=== PATIENT | male | born 1970 | race Two or more races ===

== ENCOUNTER 2017-04-20 06:12 | Emergency (ER) | payer SELFPAY ==
[~2017-04-20] VITALS: Ht 170.2 cm; Wt 99.8 kg
--- NOTE | 2017-04-20 07:05 | NUR ---
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 PATIENT WOKEN UP FROM PAIN. A/OX 4. BREATHING EVEN AND UNLABORED. NO SOB. VITALS STABLE. SAFETY AND COMFORT MEASURES IN PLACE. AWAITING MD ORDERS.
[2017-04-20] MEDS ORDERED: ONDANSETRON HCL/PF 4 MG/2 ML VIAL ONE (07:22)
[2017-04-20] MEDS ORDERED: IV NS 0.9% 1,000 ML BAG IV ONE (07:30)
[2017-04-20] MEDS ORDERED: HYDROMORPHONE INJ 2 MG/ML DISP.SYRIN IV ONE (07:30)
[2017-04-20] MEDS ORDERED: ONDANSETRON HCL/PF 4 MG/2 ML VIAL IVP ONE (07:30)
--- NOTE | 2017-04-20 07:30 | NUR ---
NEW IV STARTED ON LAC, 20 G. BLOOD DRAWN AND SENT TO LAB.
[2017-04-20 07:50] LABS: BASOPHILS % (AUTO) 0.2 % (0.0-2.0); EOSINOPHILS # (AUTO) 0.1 /CMM (0.0-0.7); EOSINOPHILS % (AUTO) 1.6 % (0.0-6.0); HEMATOCRIT 41 % (39-51); HEMOGLOBIN 13.7 g/dL (13.5-17.5); LYMPHOCYTES # (AUTO) 1.1 /CMM (0.8-4.8); LYMPHOCYTES % (AUTO) 13.2 % (20.0-44.0); MEAN CORPUSCULAR HEMOGLOBIN 30 PG (26.0-33.0); MEAN CORPUSCULAR HGB CONC 34 g/dl (31.0-36.0); MEAN CORPUSCULAR VOLUME 89 fL (80-96); MONOCYTES # (AUTO) 0.4 /CMM (0.1-1.30); MONOCYTES % (AUTO) 4.5 % (2.0-12.0); NEUTROPHILS # (AUTO) 6.4 /CMM (1.8-8.9); NEUTROPHILS % (AUTO) 80.5 % (43.0-81.0); PLATELET COUNT (AUTO) 146 /CMM (150-450); RDW COEFFICIENT OF VARIATION 12.9 (11.5-15.0); RED BLOOD CELL COUNT(AUTO) 4.58 MIL/uL (4.5-6.0)
--- NOTE | 2017-04-20 07:57 | NUR ---
PATIENT TAKEN TO CT VIA WHEELCHAIR.
[2017-04-20 08:04] LABS: CALCIUM, SERUM 8.8 mg/dL (8.5-10.1); CREATININE 0.9 mg/dL (0.6-1.3); POTASSIUM 4.3 mmol/L (3.5-5.1)
[2017-04-20 08:09] LABS: ALBUMIN 3.9 g/dL (3.4-5.0); BILIRUBIN,DIRECT 0.1 mg/dL (0.0-0.2); BILIRUBIN,TOTAL 0.7 mg/dL (0.2-1.0); TOTAL PROTEIN, SERUM 7.2 g/dL (6.4-8.2)
--- NOTE | 2017-04-20 08:10 | NUR ---
PATIENT RETURNED FROM CT IN STABLE CONDITION.
[2017-04-20 08:36] LABS: APPEARANCE,URINE CLEAR (CLEAR); BILIRUBIN,URINE NEGATIVE (NEGATIVE); BLOOD, URINE 1+ Ery/uL (NEGATIVE); COLOR,URINE YELLOW (YELLOW); KETONES,URINE NEGATIVE (NEGATIVE); LEUKOCYTE ESTERASE ,URINE NEGATIVE (NEGATIVE); NITRITE, URINE NEGATIVE (NEGATIVE); PH,URINE 5.5 (5.0-8.0); PROTEIN,URINE NEGATIVE (NEGATIVE); UGLUCOSE NEGATIVE (NEGATIVE); UROBILINOGEN,URINE 0.2 EU/dL (0.2)
--- NOTE | 2017-04-20 08:55 | NUR ---
PATIENT STATING TO HOLD OFF ON DILAUDID AT THIS TIME. HIS ABD PAIN HAS GONE AWAY WITH FLUIDS AND ZOFRAN FOR NOW, WILL CONTINUE TO MONITOR.
--- NOTE | 2017-04-20 09:10 | NUR ---
us tech at bedside.
[2017-04-20 09:27] LABS: BACTERIA,URINE Few /HPF (None Seen); SQUAMOUS EPITHELIAL CELL,UR Rare /HPF (None Seen); WBC,URINE 0-2 /HPF (0-3)
[2017-04-20 10:26] VITALS: BP 148/76
--- NOTE | 2017-04-20 10:27 | NUR ---
IV removed. Catheter intact and site benign. Pressure and 4x4 applied to site. No bleeding noted. Patient discharged to home in stable condition. Written and verbal after care instructions given. Patient verbalizes understanding of instruction.
== END 2017-04-20 10:27 | disposition home or self-care (01) ==
LOC: ER 06:14
DX: K80.20 Calculus of gallbladder without cholecystitis without obstruction (principal); K80.50 Calculus of bile duct without cholangitis or cholecystitis without obstruction; R11.2 Nausea with vomiting, unspecified
CPT/HCPCS: 36415; 74176; 76705; 80048; 80076; 81001; 83690; 85025; 96361; 96374; 99285; A4606; J2405; J7030; Z7610; 81000-TC

== ENCOUNTER 2019-05-19 11:58 | Emergency (ER) | payer BC ==
[~2019-05-19] VITALS: Ht 172.7 cm; Wt 68.0 kg
--- NOTE | 2019-05-19 12:10 | NUR ---
R U Q ABD PAIN SINCE THIS MORNING. PATIENT A/OX4, BREATHING EVEN AND UNLABORED, NO SOB NOTED, NEEDS ATTENDED, CHANGED INTO GOWN. KEPT COMFORTABLE.
[2019-05-19 12:38] LABS: BASOPHILS % (AUTO) 0.1 % (0.0-2.0); EOSINOPHILS % (AUTO) 0.1 % (0.0-6.0); HEMATOCRIT 39 % (39-51); HEMOGLOBIN 13.2 g/dL (13.5-17.5); LYMPHOCYTES # (AUTO) 0.5 /CMM (0.8-4.8); LYMPHOCYTES % (AUTO) 5.7 % (20.0-44.0); MEAN CORPUSCULAR HGB CONC 34 g/dl (31.0-36.0); MEAN CORPUSCULAR VOLUME 91 fL (80-96); MONOCYTES # (AUTO) 0.3 /CMM (0.1-1.30); NEUTROPHILS # (AUTO) 8.2 /CMM (1.8-8.9); NEUTROPHILS % (AUTO) 91.1 % (43.0-81.0); PLATELET COUNT (AUTO) 150 /CMM (150-450); RED BLOOD CELL COUNT(AUTO) 4.33 MIL/uL (4.5-6.0)
[2019-05-19 13:16] LABS: ALANINE AMINOTRANSFERASE 27 U/L (12-78); ALBUMIN 4.1 g/dL (3.4-5.0); ALKALINE PHOSPHATASE 30 U/L (46-116); ASPARTATE AMINOTRANSFERASE 15 U/L (15-37); BILIRUBIN,DIRECT 0.1 mg/dL (0.0-0.2); BILIRUBIN,TOTAL 0.9 mg/dL (0.2-1.0); CALCIUM, SERUM 9.2 mg/dL (8.5-10.1); CARBON DIOXIDE 29 mmol/L (21-32); CHLORIDE 102 mmol/L (98-107); CREATININE 0.8 mg/dL (0.6-1.3); GLUCOSE 153 mg/dL (74-106); LIPASE 165 U/L (73-393); POTASSIUM 4.2 mmol/L (3.5-5.1); SODIUM SERUM 141 mmol/L (136-145); TOTAL PROTEIN, SERUM 7.5 g/dL (6.4-8.2); UREA NITROGEN, BLOOD 19 mg/dL (7-18)
--- NOTE | 2019-05-19 13:38 | NUR ---
Patient denies pain at this time. Patient discharged to home in stable condition. Written and verbal after care instructions given. Patient verbalizes understanding of instruction.
[2019-05-19 13:39] VITALS: BP 145/74
== END 2019-05-19 13:39 | disposition home or self-care (01) ==
LOC: ER 12:06
DX: K80.50 Calculus of bile duct without cholangitis or cholecystitis without obstruction (principal)
CPT/HCPCS: 36415; 76705-TC; 80048-TC; 80076-TC; 83690-TC; 84484-TC; 85025-TC

== ENCOUNTER 2019-09-14 14:02 | Inpatient (IN) | payer BC, OTHER ==
[~2019-09-14] VITALS: Ht 170.2 cm; Wt 82.6 kg
--- NOTE | 2019-09-14 14:13 | NUR ---
RUQ abdominal pain with nausea and vomting x 3 days, Sent by Dr Gonsales for further evaluation. to ER 3, hooked to monitor, changed to hosp gown, warm blanket provided, awaiting md ugarte
--- NOTE | 2019-09-14 14:28 | NUR ---
dr grijalva at bedside
--- NOTE | 2019-09-14 14:37 | NUR ---
DR MONIQUE SPEAKING WITH DR FORD
[2019-09-14] MEDS ORDERED: MORPHINE SULFATE INJ 4 MG/ML DISP.SYRIN ONE (14:55)
[2019-09-14] MEDS ORDERED: MORPHINE SULFATE INJ 2 MG/ML DISP.SYRIN IV ONE (15:00)
[2019-09-14 15:07] LABS: CALCIUM, SERUM 8.9 mg/dL (8.5-10.1); CARBON DIOXIDE 32 mmol/L (21-32); CHLORIDE 101 mmol/L (98-107); CREATININE 0.9 mg/dL (0.6-1.3); GLUCOSE 92 mg/dL (74-106); POTASSIUM 3.9 mmol/L (3.5-5.1); SODIUM SERUM 138 mmol/L (136-145); UREA NITROGEN, BLOOD 8 mg/dL (7-18)
[2019-09-14 15:13] LABS: ALANINE AMINOTRANSFERASE 779 U/L (12-78); ALBUMIN 3.8 g/dL (3.4-5.0); ALKALINE PHOSPHATASE 371 U/L (46-116); ASPARTATE AMINOTRANSFERASE 352 U/L (15-37); BASOPHILS % (AUTO) 0.5 % (0.0-2.0); BILIRUBIN,DIRECT 4.4 mg/dL (0.0-0.2); BILIRUBIN,TOTAL 6.9 mg/dL (0.2-1.0); EOSINOPHILS % (AUTO) 2.5 % (0.0-6.0); HEMATOCRIT 41 % (39-51); HEMOGLOBIN 13.9 g/dL (13.5-17.5); LIPASE 49 U/L (73-393); LYMPHOCYTES # (AUTO) 0.8 /CMM (0.8-4.8); LYMPHOCYTES % (AUTO) 15.8 % (20.0-44.0); MEAN CORPUSCULAR HGB CONC 34 g/dl (31.0-36.0); MEAN CORPUSCULAR VOLUME 89 fL (80-96); MONOCYTES # (AUTO) 0.4 /CMM (0.1-1.30); MONOCYTES % (AUTO) 7.9 % (2.0-12.0); NEUTROPHILS # (AUTO) 3.5 /CMM (1.8-8.9); NEUTROPHILS % (AUTO) 73.3 % (43.0-81.0); PLATELET COUNT (AUTO) 143 /CMM (150-450); RED BLOOD CELL COUNT(AUTO) 4.66 MIL/uL (4.5-6.0); TOTAL PROTEIN, SERUM 7.4 g/dL (6.4-8.2); WHITE BLOOD COUNT (AUTO) 4.8 K/uL (4.3-11.0)
[2019-09-14] MEDS ORDERED: PIPERACILLIN /TAZOBACTAM 3.375 G in IV D5W 50 ML IV ONE (15:30)
[2019-09-14] MEDS ORDERED: PIPERACILLIN /TAZOBACTAM 3.375 G VIAL IV ONE (15:36)
[2019-09-14] MEDS ORDERED: ACETAMINOPHEN 325 MG TABLET PO PRN (16:00)
[2019-09-14] MEDS ORDERED: Z GUARD REMEDY 2 OZ OINT TP PRN (16:00)
[2019-09-14] MEDS ORDERED: MAG HYDROX/AL HYDROX/SIMETH 30 ML UDC PO PRN (16:00)
[2019-09-14] MEDS ORDERED: MAGNESIUM HYDROXIDE 30 ML UDC PO PRN (16:00)
[2019-09-14] MEDS ORDERED: ONDANSETRON HCL/PF 4 MG/2 ML VIAL IVP PRN (16:00)
--- NOTE | 2019-09-14 16:32 | NUR ---
REPORT GIVEN TO RAINA HUGHES OF [facility]
--- NOTE | 2019-09-14 16:55 | NUR ---
PATIENT BROUGHT TO [facility] VIA [facility]
[2019-09-14 17:10] VITALS: BP 145/88
[2019-09-14] MEDS ORDERED: PIPERACILLIN /TAZOBACTAM 3.375 G in IV D5W 50 ML IV SCH (18:00)
--- NOTE | 2019-09-14 18:30 | NUR ---
RN NOTE PATIENT IS AOX4. PAIN 7/10 IN ABDOMEN. BACK TO [facility] FROM [facility]. FLUIDS RUNNING ORDERED IN RAC 18GUAGE. CLEAN DRY AND INTACT. PATIENT IS AMBULATORY WITH STEADY GAIT. SKIN IS INTACT. SAFETY PRECAUTIONS IN PLACE. BED LOCKED, LOW POSITION WITH 2 SIDE RAILS UP FOR SAFETY. CALL LIGHT WITHIN REACH.
[2019-09-14] MEDS: IV NS 0.9% 1,000 ML IV PRN (18:36)
[2019-09-14 18:52] VITALS: BP 144/87
--- NOTE | 2019-09-14 19:15 | NUR ---
MS RN NOTES RECEIVED ON BED A/I X4,BREATHING REGULAR,NOT IN ANY FORM OF DISTRESS,BREATHING REGULAR,IVF IN PROGRESS,ON RIGHT AC,SITE PATENT.INSTRUCTED NPO AFTER MIDNIGHT FOR LAP YVETTE,POSSIBLE OPEN,CALL LIGHT IN REACH,NEEDS ANTICIPATED.
[2019-09-14 20:00] VITALS: BP 127/80
[2019-09-14] MEDS ORDERED: PIPERACILLIN /TAZOBACTAM 2.25 G in IV D5W 50 ML IV SCH (21:00)
[2019-09-14] MEDS: PIPERACILLIN /TAZOBACTAM 3.375 G in IV D5W 100 ML IV SCH (22:16)
[2019-09-14] MEDS: MORPHINE SULFATE INJ 2 MG/ML DISP.SYRIN IV PRN (23:40)
--- NOTE | 2019-09-14 23:40 | NUR ---
MS RN NOTES C/O MID ABDOMINAL PAIN 8/10 ON PAIN SCALE.MORPHINE 2MG IV ADMINISTERED ORDERED FOR SEVERE PAIN.
[2019-09-15] MEDS: PIPERACILLIN /TAZOBACTAM 3.375 G in IV D5W 100 ML IV SCH ×3 (06:13→21:48)
--- NOTE | 2019-09-15 06:26 | NUR ---
MS RN NOTES SLEPT WELL,PAIN MANAGEMENT EFFECTIVE.KEPT NPO FOR SURGERY TODAY.IV ABX INFUSING. DOMENICA WANTS TO SPEAK TO SURGEON/PA THIS MORNING REGARDING THE PROCEDURE.WILL ENDORSE TO ROJELIO HUGHES FOR CONTINUITY OF CARE.
[2019-09-15 06:27] LABS: BASOPHILS % (AUTO) 0.4 % (0.0-2.0); EOSINOPHILS % (AUTO) 2.8 % (0.0-6.0); HEMATOCRIT 41 % (39-51); LYMPHOCYTES # (AUTO) 0.7 /CMM (0.8-4.8); LYMPHOCYTES % (AUTO) 13.2 % (20.0-44.0); MEAN CORPUSCULAR HGB CONC 34 g/dl (31.0-36.0); MEAN CORPUSCULAR VOLUME 89 fL (80-96); MONOCYTES # (AUTO) 0.4 /CMM (0.1-1.30); MONOCYTES % (AUTO) 8.2 % (2.0-12.0); NEUTROPHILS % (AUTO) 75.4 % (43.0-81.0); PLATELET COUNT (AUTO) 140 /CMM (150-450); RED BLOOD CELL COUNT(AUTO) 4.68 MIL/uL (4.5-6.0); WHITE BLOOD COUNT (AUTO) 5.3 K/uL (4.3-11.0)
[2019-09-15 06:49] LABS: ALBUMIN 3.4 g/dL (3.4-5.0); BILIRUBIN,TOTAL 7.4 mg/dL (0.2-1.0); CALCIUM, SERUM 8.8 mg/dL (8.5-10.1); CREATININE 0.9 mg/dL (0.6-1.3); MAGNESIUM 1.9 mg/dL (1.8-2.4); PHOSPHORUS 3.4 mg/dL (2.5-4.9); POTASSIUM 3.5 mmol/L (3.5-5.1); TOTAL PROTEIN, SERUM 6.8 g/dL (6.4-8.2)
[2019-09-15 07:04] LABS: THYROID STIMULATING HORMONE 1.281 uIU/mL (0.358-3.74)
--- NOTE | 2019-09-15 07:59 | NUR ---
MS RN OPENING NOTES Received Patient resting in bed. A/O x 4. VS stable with no acute distress. Breathing even and unlabored on room air with no respiratory distress. Denies pain. 18g PIV clean, intact, patent and flushing well with NS infusing at 100ml/hr. NPO precautions in place. Safety precautions in place. Bed locked and set to lowest position with side rails x 2 up. All needs rendered at this time. Call light within reach. Will continue to monitor.
[2019-09-15 08:42] VITALS: BP 141/78
[2019-09-15] MEDS: PANTOPRAZOLE 40 MG VIAL IV SCH (09:30)
[2019-09-15 10:02] LABS: BILIRUBIN,DIRECT 4.5 mg/dL (0.0-0.2); BILIRUBIN,TOTAL 7.4 mg/dL (0.2-1.0)
[2019-09-15] MEDS ORDERED: ANESTHESIA TRAY IN PYXIS 1 EA TRAY MC ONE (11:09)
[2019-09-15] MEDS ORDERED: IOHEXOL 240MG/ML 50 ML IV ONE ×2 (12:11→13:33)
[2019-09-15] MEDS ORDERED: MIDAZOLAM HCL 2 MG/2ML VIAL ONE ×2 (12:49→13:28)
[2019-09-15] MEDS ORDERED: SILVER NITRATE APPLICATOR 1 EA BOX ONE (13:34)
[2019-09-15] MEDS ORDERED: PROPOFOL 20 ML IV ONE (13:53)
[2019-09-15] MEDS ORDERED: FENTANYL PF 100MCG/2ML AMPUL ONE (14:05)
--- NOTE | 2019-09-15 15:38 | NUR ---
MS RN NOTES Patient returned from OR s/p ERCP. Patient in stable condition. Orders noted and carried out. Will continue to monitor.
--- NOTE | 2019-09-15 18:34 | NUR ---
MS RN CLOSING NOTES Patient resting in bed. A/O x 4. VS stable with no acute distress. Breathing even and unlabored on room air with no respiratory distress. Denies pain. 18g PIV clean, intact, patent and flushing well with NS infusing at 100ml/hr. Safety precautions in place. Bed locked and set to lowest position with side rails x 2 up. All needs rendered at this time. Call light within reach. Will endorse plan of care to oncoming shift.
--- NOTE | 2019-09-15 19:15 | NUR ---
RN NOTES: RECEIVED ASLEEP ON BED IN HIGH FOWLERS POSITION, BREATHING SPONTANEOUSLY WITH O2 AT 2L/MIN VIA NC, SEIZURE PRECAUTION NOTED, WITH PADDED SIDE RAILS, ON TELE MONITOR SINUS RHYTHM RATE-67, ON BLOOD SUGAR MONITOR, IV SITE ON RFA G#18 TKO, HE IS NO LONGER RESTLESS PER ENDORSEMENT THEREFORE RESTRAINT ORDER WAS NOT RENEW ANYMORE, PER RN-MORNING SHIFT FOR MED-[facility] TOMORROW,FURTHERMORE, AROUND 1800 ONCO- OK TO TEMPORARILY HOLD CHEMO DRUGS AND RADIATION SESSION WHILE IN HOSPITAL,ONCE HE WILL BE DISCHARGE BACK HOME, H/H WILL BE ARRANGE AND RESUME 2 TREATMENT TOGETHER PER ENDORSEMENT. -ON CLOSE WATCH, FREQUENT VISUAL CHECK DONE,SEIZURE, FALL,SAFETY AND ASPIRATION PRECAUTION OBSERVED, BED LOW AND LOCKED, CALL LIGHT WITHIN EASY REACH.
--- NOTE | 2019-09-15 19:30 | NUR ---
MS RN NOTE: PATIENT RESTING IN BED, NO ACUTE DISTRESS NOTED. BREATHING EVEN AND UNLABORED, NO SOB NOTED. IV TO RAC IN PLACE. PATIENT TO HAVE SURGERY TOMORROW, CONSENTS SIGNED WITH DAY NURSE. INSTRUCTED PATIENT THAT HE CAN NOT EAT OR DRINK AFTER MIDNIGHT. BED LOCKED AND IN LOWEST POSITION, CALL LIGHT IN REACH. WILL CONTINUE TO MONITOR.
[2019-09-15 20:00] VITALS: BP 127/76
--- NOTE | 2019-09-16 00:10 | NUR ---
MS RN NOTE: PATIENT TO HAVE LAP YVETTE, INSTRUCTED PATIENT THAT HE IS NPO AND UNABLE TO EAT OR DRINK AT THIS TIME. CONSENTS SIGNED AND IN CHART. WILL CONTINUE TO MONITOR.
[2019-09-16] MEDS: IV NS 0.9% 1,000 ML IV PRN ×2 (05:02→23:58)
--- NOTE | 2019-09-16 06:05 | NUR ---
MS RN NOTE: PATIENT RESTING IN BED, NO ACUTE DISTRESS NOTED. BREATHING EVEN AND UNLABORED, NO SOB NOTED. IV TO RAC IN PLACE, INFUSING NS AT 100ML/HR. BED LOCKED AND IN LOWEST POSITION, CALL LIGHT IN REACH. WILL ENDORSE TO DAY NURSE TO CONTINUE WITH PLAN OF CARE.
[2019-09-16] MEDS: PIPERACILLIN /TAZOBACTAM 3.375 G in IV D5W 100 ML IV SCH ×3 (06:13→22:03)
[2019-09-16 08:00] VITALS: BP 118/72
--- NOTE | 2019-09-16 08:00 | NUR ---
RN OPENING NOTE: RECEIVED PATIENT AWAKE AND AOX4. AMBULATED TO BATHROOM WITH STEADY GAIT. PATIENT IS COOPERATIVE. NO SIGNS OF DISTRESS. DENIES PAIN. BREATHING IS EVEN AND UNLABORED. ON RA. EQUAL RISE AND FALL OF CHEST. RAC 18 G PATENT AND INTACT WITH NS RUNNING ORDERED. SAFETY PRECAUTIONS IN PLACE. BED IN LOW POSITION, LOCKED WITH 2 SIDE RAILS UP FOR SAFETY. CALL LIGHT WITHIN REACH. ALL NEEDS ATTENDED TO. WILL CONTINUE TO MONITOR.
[2019-09-16 09:15] LABS: BASOPHILS % (AUTO) 0.3 % (0.0-2.0); EOSINOPHILS % (AUTO) 1.9 % (0.0-6.0); HEMATOCRIT 37 % (39-51); HEMOGLOBIN 12.6 g/dL (13.5-17.5); LYMPHOCYTES % (AUTO) 18.8 % (20.0-44.0); MEAN CORPUSCULAR HGB CONC 34 g/dl (31.0-36.0); MEAN CORPUSCULAR VOLUME 88 fL (80-96); MONOCYTES # (AUTO) 0.4 /CMM (0.1-1.30); MONOCYTES % (AUTO) 8.8 % (2.0-12.0); NEUTROPHILS # (AUTO) 3.6 /CMM (1.8-8.9); NEUTROPHILS % (AUTO) 70.2 % (43.0-81.0); PLATELET COUNT (AUTO) 140 /CMM (150-450); RED BLOOD CELL COUNT(AUTO) 4.16 MIL/uL (4.5-6.0); WHITE BLOOD COUNT (AUTO) 5.1 K/uL (4.3-11.0)
[2019-09-16 09:18] LABS: BILIRUBIN,DIRECT 0.9 mg/dL (0.0-0.2); BILIRUBIN,TOTAL 3.1 mg/dL (0.2-1.0); CALCIUM, SERUM 8.6 mg/dL (8.5-10.1); CREATININE 0.9 mg/dL (0.6-1.3); PHOSPHORUS 3.3 mg/dL (2.5-4.9); POTASSIUM 3.9 mmol/L (3.5-5.1); TOTAL PROTEIN, SERUM 6.4 g/dL (6.4-8.2)
[2019-09-16] MEDS: PANTOPRAZOLE 40 MG VIAL IV SCH (09:22)
[2019-09-16 09:45] VITALS: BP 118/72
[2019-09-16 10:32] LABS: BILIRUBIN,DIRECT 0.9 mg/dL (0.0-0.2); BILIRUBIN,TOTAL 3.1 mg/dL (0.2-1.0)
[2019-09-16 16:00] VITALS: BP 118/91
--- NOTE | 2019-09-16 18:48 | NUR ---
RN CLOSING NOTE: PATIENT AWAKE AND AOX4. AMBULATES TO BATHROOM WITH STEADY GAIT. PATIENT IS COOPERATIVE. NO SIGNS OF DISTRESS. INTERMITTENT ABDOMINAL PAIN. DENIES PAIN MEDICATION. BREATHING IS EVEN AND UNLABORED. ON RA. EQUAL RISE AND FALL OF CHEST. RAC 18 G PATENT AND INTACT WITH NS RUNNING ORDERED. SAFETY PRECAUTIONS IN PLACE. BED IN LOW POSITION, LOCKED WITH 2 SIDE RAILS UP FOR SAFETY. CALL LIGHT WITHIN REACH. ALL NEEDS ATTENDED TO. WILL ENDORSE CARE TO ONCOMING RN FOR GLENNY
--- NOTE | 2019-09-16 19:30 | NUR ---
RN PM OPENING NOTE: PATIENT IN BED ALERT AND ORIENTED. POC REVIEWED. PATIENT HAS NOT EATEN ALL DAY. PATIENT IS NPO PATIENT STILL WAITING TO SEE IF HE IS TO HAVE CHOLECYSTECTOMY TODAY. PT AMBULATORY WITH STEADY GAIT. PATIENT IS COOPERATIVE. NO SIGNS OF DISTRESS. PATIENT DENIES ABD PAIN. BREATHING IS EVEN AND UNLABORED. ON RA. EQUAL RISE AND FALL OF CHEST. RAC 18 G PATENT AND INTACT WITH NS RUNNING ORDERED. SAFETY PRECAUTIONS IN PLACE. BED IN LOW POSITION, LOCKED WITH 2 SIDE RAILS UP FOR SAFETY. CALL LIGHT WITHIN REACH. ALL NEEDS ATTENDED TO. WILL CONT TO MONITOR.
[2019-09-16 20:00] VITALS: BP 123/73
--- NOTE | 2019-09-16 20:08 | NUR ---
PT UPSET ABOUT NOT BEING ABLE TO EAT. PT NOT CLEAR WHEN SURGERY IS GOING TO OCCUR. DR. FORD PAGED AND INFORMED. NEW ORDERS TO HAVE PATIENT ON CLEAR LIQUIDS. AND NPO AFTER MIDNIGHT WILL BE TRYING TO SCHEDULE THE SURGERY FOR TOMORROW 09/17/19.
[2019-09-17] MEDS: PIPERACILLIN /TAZOBACTAM 3.375 G in IV D5W 100 ML IV SCH ×3 (05:37→21:27)
--- NOTE | 2019-09-17 06:35 | NUR ---
RN PM CLOSING NOTE: PATIENT IN BED WITH EYES CLOSED. AWAKENS TO VOICE. PATIENT CONFIRMED HE HAS BEEN NPO FOR POSSIBLE CHOLECYSTECTOMY TODAY. PT STILL AMBULATES TO BATHROOM WITH STEADY GAIT. PATIENT IS COOPERATIVE. NO SIGNS OF DISTRESS. PATIENT DENIES ABD PAIN. BREATHING IS EVEN AND UNLABORED. ON RA. EQUAL RISE AND FALL OF CHEST. RAC 18 G PATENT AND INTACT WITH NS RUNNING ORDERED. SAFETY PRECAUTIONS IN PLACE. BED IN LOW POSITION, LOCKED WITH 2 SIDE RAILS UP FOR SAFETY. CALL LIGHT WITHIN REACH. ALL NEEDS ATTENDED TO. WILL ENDORSE CARE TO ONCOMING RN FOR GLENNY
--- NOTE | 2019-09-17 07:25 | NUR ---
MS RN OPENING NOTES RECEIVED PT IN BED, AWAKE, A/O X4. TOLERATING RA WITH NO ACUTE RESPIRATORY DISTRESS NOTED. PT DENIES ANY PAIN OR DISCOMFORT AT THIS TIME. PT CONCERNED ABOUT SURGERY IF SCHEDULED TODAY, CURRENTLY NPO SINCE MIDNIGHT; RN TO F/U WITH SURGEON. IVF NS AT 100ML/HRT TO RAC 18G, INTACT AND FLUID INFUSING WELL. PT KEPT COMFORTABLE IN BED. CALL LIGHT KEPT WITHIN REACH. PT'S BED IN LOWEST, LOCKED POSITION WITH SR X3. WILL CONTINUE PLAN OF CARE.
[2019-09-17 07:41] LABS: BASOPHILS % (AUTO) 0.7 % (0.0-2.0); EOSINOPHILS % (AUTO) 4.4 % (0.0-6.0); HEMATOCRIT 39 % (39-51); HEMOGLOBIN 13.2 g/dL (13.5-17.5); LYMPHOCYTES % (AUTO) 25.9 % (20.0-44.0); MEAN CORPUSCULAR HGB CONC 34 g/dl (31.0-36.0); MEAN CORPUSCULAR VOLUME 88 fL (80-96); MONOCYTES # (AUTO) 0.3 /CMM (0.1-1.30); NEUTROPHILS # (AUTO) 2.3 /CMM (1.8-8.9); PLATELET COUNT (AUTO) 139 /CMM (150-450); RED BLOOD CELL COUNT(AUTO) 4.46 MIL/uL (4.5-6.0); WHITE BLOOD COUNT (AUTO) 3.8 K/uL (4.3-11.0)
[2019-09-17 07:55] LABS: ALBUMIN 3.1 g/dL (3.4-5.0); BILIRUBIN,DIRECT 0.6 mg/dL (0.0-0.2); BILIRUBIN,TOTAL 2.2 mg/dL (0.2-1.0); CALCIUM, SERUM 8.8 mg/dL (8.5-10.1); CREATININE 1.1 mg/dL (0.6-1.3); PHOSPHORUS 4.2 mg/dL (2.5-4.9); POTASSIUM 4.2 mmol/L (3.5-5.1); TOTAL PROTEIN, SERUM 6.5 g/dL (6.4-8.2)
[2019-09-17 08:00] VITALS: BP 118/76
[2019-09-17] MEDS: PANTOPRAZOLE 40 MG VIAL IV SCH (09:18)
[2019-09-17] MEDS: IV NS 0.9% 1,000 ML IV PRN (13:47)
--- NOTE | 2019-09-17 14:00 | NUR ---
MS RN NOTES PT SCHEDULED FOR SURGERY AT 3PM WITH DR. FORD. PT PREFERS NOT TO ADMINISTER 1400 IV ZOSYN AT THIS TIME. PT PREFERS FOR IT TO BE DONE AFTER SURGERY. WILL NOTIFY .
[2019-09-17] MEDS ORDERED: LIDOCAINE 1% INJ 50 ML MDV IJ ONE (14:41)
[2019-09-17] MEDS ORDERED: BUPIVACAINE MPF 0.5% W/EPI INJ 30 ML VIAL ONE (14:41)
[2019-09-17] MEDS ORDERED: ANESTHESIA TRAY IN PYXIS 1 EA TRAY MC ONE (14:42)
--- NOTE | 2019-09-17 14:45 | NUR ---
MS RN NOTES PT WENT TO 2ND FLOOR FOR SCHEDULED SURGERY WITH DR. FORD. VS STABLE. CONSENTS SIGNED.
[2019-09-17] MEDS ORDERED: FENTANYL PF 250MCG/5ML AMPUL ONE (14:57)
[2019-09-17] MEDS ORDERED: MIDAZOLAM HCL 2 MG/2ML VIAL ONE (14:57)
[2019-09-17] MEDS ORDERED: FENTANYL PF 100MCG/2ML AMPUL ONE (17:47)
--- NOTE | 2019-09-17 18:31 | NUR ---
MS RN NOTES PT JUST CAME BACK FROM OR/RECOVERY. VS STABLE. TAKEN AND RECORDED.
[2019-09-17 18:32] VITALS: BP 128/81
--- NOTE | 2019-09-17 18:32 | NUR ---
MS RN NOTES PER RECOVERY NURSE/DEBBIE, PT HAD S/P LAPAROSCOPIC CHOLECYSTECTOMY AND HERNIA REPAIR. 2 SMALL INCISION SITES IN THE ABDOMEN AND LOUISE DRAIN WITH SEROSANGUINEOUS DRAINAGE. WILL CONTINUE PLAN OF CARE.
[2019-09-17] MEDS: MORPHINE SULFATE INJ 2 MG/ML DISP.SYRIN IV PRN (19:03)
--- NOTE | 2019-09-17 19:05 | NUR ---
MS RN NOTES PT REPORTED 10/10 PAIN ON THE RIGHT ABDOMEN. MORPHINE 2MG PRN GIVEN ORDERED. WILL CONTINUE TO MONITOR PT.
--- NOTE | 2019-09-17 19:49 | NUR ---
MS RN NOTES RN CALLED CHRISTIN/ , GAVE PT'S UPDATE. PT NOW BACK IN THE ROOM, STABLE, HAD PAIN AND PRN PAIN MEDICINE GIVEN. WILL CONTINUE TO MONITOR.
[2019-09-17 20:00] VITALS: BP 123/79
[2019-09-17 20:30] VITALS: BP 123/79
--- NOTE | 2019-09-17 22:15 | NUR ---
MS RN NOTES PT REMAINS IN BED, ASLEEP. PT KEPT COMFORTABLE. ON GOING ZOSYN IV TO LEFT WRIST G22, INTACT AND NO INFILTRATION NOTED. PT'S BED IN LOWEST, LOCKED POSITION. CALL LIGHT KEPT WITHIN REACH. ENDORSE TO ELLEN/RONNIE.
--- NOTE | 2019-09-17 22:32 | NUR ---
MS RN RECEIVED REPORT: RECEIVED REPORT FROM ELLEN RUBIO. PT IN BED SLEEPING WITH EYES CLOSED. PT EASILY AWAKEN. NO ACUTE RESPIRATORY DISTRESS NOTED. NO S/S OF RESP DISTRESS. BREATHING EVEN AND UNLABORED. IV ACCESS INTACT. NO INFILTRATION NOTED. NO BLEEDING AT SITE. IV MEDICATION RUNNING. PT KEPT COMFORTABLE IN BED. CALL LIGHT KEPT WITHIN REACH. PT'S BED IN LOWEST, LOCKED POSITION WITH SR X3. WILL CONTINUE PLAN OF CARE.
[2019-09-18] MEDS: IV NS 0.9% 1,000 ML IV PRN (01:00)
[2019-09-18] MEDS: MORPHINE SULFATE INJ 2 MG/ML DISP.SYRIN IV PRN ×3 (03:09→16:28)
--- NOTE | 2019-09-18 03:19 | NUR ---
MS RN PRN MORPHINE: PT C/O OF 01/07 PAIN ON ABDOMEN. PT REQUESTING PAIN MEDICATION. MEDICATION PRN MORPHINE IV PUSH ADMINISTERED AT THIS TIME. WILL CONTINUE TO MONITOR.
[2019-09-18] MEDS: PIPERACILLIN /TAZOBACTAM 3.375 G in IV D5W 100 ML IV SCH ×2 (05:04→13:21)
--- NOTE | 2019-09-18 06:48 | NUR ---
end of shift report: pt more awake now, able to make his needs known, remains on 2l oxygen via nc, respirations even and unlabored. iv access remains patent and flushing well, currently infusing with iv atb extended infusion, no s/s of iv infiltration noted. abdominal incision remains in placed, no s/s of active bleeding on surgical site noted, giselle drain on rlq remains in placed, emptied 5ml of serosanguineous drainage. prn morphine given twice in a shift for c/o surgical post op abdl pain. urinal at bed side. safety precautions for fall remains engaged, call light in reach, hourly rounding performed, will endorse to day rn for continuity of care.
[2019-09-18 07:12] LABS: BASOPHILS % (AUTO) 0.4 % (0.0-2.0); EOSINOPHILS % (AUTO) 0.5 % (0.0-6.0); HEMATOCRIT 39 % (39-51); HEMOGLOBIN 12.9 g/dL (13.5-17.5); LYMPHOCYTES # (AUTO) 0.7 /CMM (0.8-4.8); LYMPHOCYTES % (AUTO) 11.2 % (20.0-44.0); MEAN CORPUSCULAR HGB CONC 33 g/dl (31.0-36.0); MEAN CORPUSCULAR VOLUME 88 fL (80-96); MONOCYTES # (AUTO) 0.6 /CMM (0.1-1.30); MONOCYTES % (AUTO) 9.3 % (2.0-12.0); NEUTROPHILS # (AUTO) 4.9 /CMM (1.8-8.9); NEUTROPHILS % (AUTO) 78.6 % (43.0-81.0); PLATELET COUNT (AUTO) 144 /CMM (150-450); RED BLOOD CELL COUNT(AUTO) 4.37 MIL/uL (4.5-6.0); WHITE BLOOD COUNT (AUTO) 6.2 K/uL (4.3-11.0)
[2019-09-18 07:20] LABS: BILIRUBIN,DIRECT 0.7 mg/dL (0.0-0.2); BILIRUBIN,TOTAL 1.9 mg/dL (0.2-1.0); CALCIUM, SERUM 8.3 mg/dL (8.5-10.1); CREATININE 0.9 mg/dL (0.6-1.3); POTASSIUM 3.8 mmol/L (3.5-5.1); TOTAL PROTEIN, SERUM 6.4 g/dL (6.4-8.2)
[2019-09-18 07:31] LABS: MAGNESIUM 1.7 mg/dL (1.8-2.4); PHOSPHORUS 4.3 mg/dL (2.5-4.9)
--- NOTE | 2019-09-18 07:35 | NUR ---
MS RN OPENING NOTES RECEIVED PT IN BED, INTERMITTENTLY DOZING OFF, EASILY AROUSED, A/O X4. ON SUPPLEMENTARY OXYGEN AT 2LPM VIA NC, WITH NO ACUTE RESPIRATORY DISTRESS NOTED. PT DENIES ANY PAIN OR DISCOMFORT AT THIS TIME. PT DENIES ANY CONCERNS OR QUESTIONS AT THE TIME WELL. IVF NS AT 100ML/HR TO L WRIST G22, INTACT AND FLUID INFUSING WELL. LOUISE DRAIN TO RIGHT ABDOMEN, WITH SEROSANGUINEOUS DRAINAGE. PT KEPT COMFORTABLE IN BED. CALL LIGHT KEPT WITHIN REACH. PT'S BED IN LOWEST, LOCKED POSITION WITH SR X3. WILL CONTINUE PLAN OF CARE.
[2019-09-18 08:00] VITALS: BP 122/75
[2019-09-18] MEDS: PANTOPRAZOLE 40 MG VIAL IV SCH (08:04)
--- NOTE | 2019-09-18 08:07 | NUR ---
MS RN NOTES PT REQUESTING FOR PAIN MEDICINE FOR RIGHT ABD PAIN. PAIN RATED 7-8 OUT OF 10. PRN MORPHINE GIVEN ORDERED. QUIET ENVIRONMENT PROVIDED, CLOSED LIGHT AND DOOR. PT OKAY WITH IT. WILL CONTINUE TO MONITOR.
[2019-09-18] MEDS: Magnesium 1GM/D5W 100ML PREMIX 100 ML IV SCH ×2 (10:21→11:34)
[2019-09-18 16:00] VITALS: BP 115/70
--- NOTE | 2019-09-18 16:30 | NUR ---
MS RN NOTES PT REQUESTING FOR PAIN MEDICINE FOR RIGHT ABD PAIN. PAIN RATED 8-9 OUT OF 10. PRN MORPHINE GIVEN ORDERED. WILL CONTINUE TO MONITOR.
--- NOTE | 2019-09-18 18:01 | NUR ---
MS RN NOTES PT SEEN AND EVALUATED BY DR. FORD. LOUISE DRAIN REMOVED AT BEDSIDE. PT NOT IN ANY DISCOMFORT AT THIS TIME. PER DR. FORD, PT MAY DISCHARGE TODAY. WILL NOTIFY HOSPITALIST/LW.
[2019-09-18] MEDS ORDERED: AMOX-430 PO (18:26)
[2019-09-18] MEDS ORDERED: HYDR-4384 PO (18:26)
--- NOTE | 2019-09-18 19:31 | NUR ---
MS RN CLOSING NOTES PT REMAINS IN BED, AWAKE, A/O X4. TOLERATING RA, WITH NO ACUTE RESPIRATORY DISTRESS NOTED. PT DENIES ANY PAIN OR DISCOMFORT AT THIS TIME. PT AWARE BEING DISCHARGE TONIGHT. IVF NS AT 100ML/HR TO L WRIST G22, STOPPED. ALL NEEDS AND CARE ATTENDED. PT KEPT COMFORTABLE IN BED. CALL LIGHT KEPT WITHIN REACH. PT'S BED IN LOWEST, LOCKED POSITION WITH SR X3. ENDORSED TO INCOMING NIGHT NURSE FOR DISCHARGE.
--- NOTE | 2019-09-18 19:50 | NUR ---
MS RN NOTES RECEIVED PATIENT IN BED, AWAKE, A/O X4.NO ACUTE SIGNS OF RESPIRATORY DISTRESS NOTED. PT DENIES ANY PAIN OR DISCOMFORT AT THIS TIME.PATIENT IS AWARE BEING DISCHARGE TONIGHT. AWAITING FOR FOR CAPACITY ANALYST. ALL NEEDS AND CARE ATTENDED. PT KEPT COMFORTABLE IN BED. SAFETY MEASURES IN PLACE, CALL LIGHT KEPT WITHIN REACH. PT'S BED IN LOWEST, LOCKED POSITION WITH SR X3. DISCHARGE PAPERWORK HANDED TO PATIENT AND SIGNS, BELONGING LIST ACCOUNTED FOR, WILL MONITOR ACCORDINGLY.
--- NOTE | 2019-09-18 20:13 | NUR ---
RN NOTES PATIENT LEFT THE UNIT IN STABLE CONDITION ESCORTED BY JOSE MANUEL FRANCOIS. VITAL SIGNS TAKEN FOLLOWS BP: 139/76, HR 92 RR18, TEMP 98.3 SATING 96% ON ROOM AIR. SAFETY MEASURES IN PLACE, ALL NEEDS ATTENDED AND MET, IV LINE REMOVED, DISCHARGE HEALTH TEACHINGS PROVIDED. CHARGE NURSE AWARE OF DISCHARGE.
== END 2019-09-18 20:15 | disposition home or self-care (01) | DRG 419 ==
LOC: ER 14:04 → MED 16:12
PROVIDERS: ADMIT Registered Nurse; ATTEND Registered Nurse
DX: K80.43 Calculus of bile duct with acute cholecystitis with obstruction (principal); D69.6 Thrombocytopenia, unspecified; I10 Essential (primary) hypertension; K76.0 Fatty (change of) liver, not elsewhere classified; K43.9 Ventral hernia without obstruction or gangrene; K42.9 Umbilical hernia without obstruction or gangrene; K40.20 Bilateral inguinal hernia, without obstruction or gangrene, not specified as recurrent; Z68.28 Body mass index [BMI] 28.0-28.9, adult; E80.6 Other disorders of bilirubin metabolism; R74.0 Nonspecific elevation of levels of transaminase and lactic acid dehydrogenase [LDH]; E66.3 Overweight; D64.9 Anemia, unspecified; E88.09 Other disorders of plasma-protein metabolism, not elsewhere classified; D72.819 Decreased white blood cell count, unspecified
CPT/HCPCS: 36415; 71045-TC; 74018; 74181-TC; 76705-TC; 80048-TC; 80053-TC; 80061-TC; 80076-TC; 82247-TC; 82248-TC; 83690-TC; 83735-TC; 84100-TC; 84443-TC; 84484-TC; 85025-TC; 85730-TC; 87081-TC; 88304-TC; 88307-TC; 88312-TC; A6209; C9113; G0378; J0330; J1100; J2250; J2270; J2405; J2543; J2704; J2765; J3010; J3475; J3490; J7030; J7060; Q9966